=== PATIENT | male | born 1960 | race American Indian/Alaskan Native ===

== ENCOUNTER 2021-12-13 00:32 | Emergency (ER) | payer MEDICARE ==
--- NOTE | 2021-12-13 00:50 | Emergency Department Report ---
ED General Adult HPI - General Stated complaint: ABNORMAL LAB Time Seen by Provider: 12/13/21 00:46 - History of Present Illness Initial comments: Patient is a 61-year-old male sent from [facility] for abnormal labs. Patient reportedly has severe anemia and was sent here for blood transfusion. He he denies any symptoms. Denies dark stools or any bleeding. - Related Data Home Medications Medication Instructions Recorded Confirmed Last Taken Acetaminophen [Non-Aspirin] 650 mg PO PRN PRN 11/26/21 11/26/21 Unknown Diclofenac Sodium [Venngel One] 1 each TP Q6H PRN 11/26/21 11/26/21 Unknown Insulin Lispro [Admelog] 100 unit SQ PRN PRN 11/26/21 11/26/21 Unknown Rivaroxaban [Xarelto] 20 mg PO QDAY 11/26/21 12/03/21 Unknown Previous Rx's Medication Instructions Recorded Last Taken Type Acetaminophen [Acetaminophen TAB] 650 mg PO Q4H PRN tablet 12/04/21 Unknown Rx AtorvaSTATin 10 mg PO QHS tablet 12/04/21 Unknown Rx Calc Carb/Vit D 500 mg-200 Uni 1 each PO DAILY tablet 12/04/21 Unknown Rx [Oysco D 500 mg-200 Unit] Citalopram [celeXA] 10 mg PO QDAY tablet 12/04/21 Unknown Rx Cyclobenzaprine [Flexeril 10 MG 10 mg PO Q8H tablet 12/04/21 Unknown Rx TAB] Diclofenac 1% [Diclofenac 1% 1 applic TP Q6H PRN tube 12/04/21 Unknown Rx topical gel] Lipase/Protease/Amylase [Pancreaze 1 each FEEDTUBE PRN PRN capsule 12/04/[address],500 Unit] Mirtazapine [Remeron 15mg TAB] 15 mg PO QHS tablet 12/04/21 Unknown Rx Sennosides Tab [Senokot] 8.6 mg PO QDAY tablet 12/04/21 Unknown Rx Simple Syrup 15 ml FEEDTUBE PRN PRN oral.liqd 12/04/21 Unknown Rx Simple Syrup 30 ml FEEDTUBE PRN PRN oral.liqd 12/04/21 Unknown Rx Sodium Bicarbonate 325 mg FEEDTUBE PRN PRN tablet 12/04/21 Unknown Rx Thiamine [Vitamin B-1] 100 mg PO QDAY tablet 12/04/21 Unknown Rx lisinopriL [Zestril TAB] 5 mg PO DAILY tablet 12/04/21 Unknown Rx metFORMIN [Glucophage] 1,000 mg PO BIDDIAB tablet 12/04/21 Unknown Rx polyethylene glycoL 3350 [Miralax 17 gm PO DAILY PRN powd.pack 12/04/21 Unknown Rx 3350] Allergies Allergy/AdvReac Type Severity Reaction Status Date / Time No Known Allergies Allergy Verified 11/26/21 14:58 ED Review of Systems ROS: Stated complaint: ABNORMAL LAB Other details as noted in HPI ED Past Medical Hx - Past Medical History Hx Hypertension: Yes Hx Heart Attack/AMI: No Hx Congestive Heart Failure: No Hx Diabetes: Yes Hx Deep Vein Thrombosis: Yes Hx Liver Disease: No Hx Renal Disease: No Hx Sickle Cell Disease: No Hx Arthritis: Yes Hx Asthma: No Hx COPD: No Hx HIV: No - Social History Smoking Status: Former Smoker - Medications Home Medications: Home Medications Medication Instructions Recorded Confirmed Last Taken Type Acetaminophen [Non-Aspirin] 650 mg PO PRN PRN 11/26/21 11/26/21 Unknown History Diclofenac Sodium [Venngel One] 1 each TP Q6H PRN 11/26/21 11/26/21 Unknown History Insulin Lispro [Admelog] 100 unit SQ PRN PRN 11/26/21 11/26/21 Unknown History Rivaroxaban [Xarelto] 20 mg PO QDAY 11/26/21 12/03/21 Unknown History Acetaminophen [Acetaminophen TAB] 650 mg PO Q4H PRN tablet 12/04/21 Unknown Rx AtorvaSTATin 10 mg PO QHS tablet 12/04/21 Unknown Rx Calc Carb/Vit D 500 mg-200 Uni 1 each PO DAILY tablet 12/04/21 Unknown Rx [Oysco D 500 mg-200 Unit] Citalopram [celeXA] 10 mg PO QDAY tablet 12/04/21 Unknown Rx Cyclobenzaprine [Flexeril 10 MG 10 mg PO Q8H tablet 12/04/21 Unknown Rx TAB] Diclofenac 1% [Diclofenac 1% 1 applic TP Q6H PRN tube 12/04/21 Unknown Rx topical gel] Lipase/Protease/Amylase [Pancreaze 1 each FEEDTUBE PRN PRN capsule 12/04/[address],500 Unit] Mirtazapine [Remeron 15mg TAB] 15 mg PO QHS tablet 12/04/21 Unknown Rx Sennosides Tab [Senokot] 8.6 mg PO QDAY tablet 12/04/21 Unknown Rx Simple Syrup 15 ml FEEDTUBE PRN PRN oral.liqd 12/04/21 Unknown Rx Simple Syrup 30 ml FEEDTUBE PRN PRN oral.liqd 12/04/21 Unknown Rx Sodium Bicarbonate 325 mg FEEDTUBE PRN PRN tablet 12/04/21 Unknown Rx Thiamine [Vitamin B-1] 100 mg PO QDAY tablet 12/04/21 Unknown Rx lisinopriL [Zestril TAB] 5 mg PO DAILY tablet 12/04/21 Unknown Rx metFORMIN [Glucophage] 1,000 mg PO BIDDIAB tablet 12/04/21 Unknown Rx polyethylene glycoL 3350 [Miralax 17 gm PO DAILY PRN powd.pack 12/04/21 Unknown Rx 3350] ED Physical Exam - General General appearance: alert, in no apparent distress - Head Head exam: Present: atraumatic, normocephalic - Neck Neck exam: Present: other (Cervical collar in place due to recent spinal surgery) - Respiratory Respiratory exam: Present: normal lung sounds bilaterally. Absent: respiratory distress - Cardiovascular Cardiovascular Exam: Present: regular rate, normal rhythm, normal heart sounds - GI/Abdominal GI/Abdominal exam: Present: soft. Absent: distended, tenderness - Rectal Rectal exam: Present: deferred - Neurological Exam Neurological exam: Present: alert, oriented X3 - Psychiatric Psychiatric exam: Present: normal affect, normal mood - Skin Skin exam: Present: warm, dry, intact, normal color ED Course Vital Signs 12/13/21 12/13/21 12/13/21 00:33 00:59 02:24 Temperature 97.8 F 98.1 F Pulse Rate 88 85 Respiratory 18 16 Rate Blood Pressure 114/72 Blood Pressure 119/74 [Right] O2 Sat by Pulse 96 98 98 Oximetry ED Medical Decision Making - Lab Data Result diagrams: 12/13/21 01:24 12/13/21 01:24 - Medical Decision Making Hemoglobin 7.7. Occult stool negative. Vital signs are stable. Patient is in no acute distress. No indication for emergent blood transfusion at this time. He is stable for discharge back to nursing facility. Critical care attestation.: If time is entered above; I have spent that time in minutes in the direct care of this critically ill patient, excluding procedure time. ED Disposition Clinical Impression: Anemia Disposition: 01 HOME / SELF CARE / HOMELESS Is pt being admited?: No Condition: Stable Instructions: Hematocrit Test, Complete Blood Count Additional Instructions: Please follow-up with your regular doctor within 1 week. You may return if you develop shortness of breath, weakness or dizziness. Time of Disposition: 03:26
[2021-12-13 02:04] LABS: Hemoglobin 7.7 gm/dl (11.8-15.2); Mean Corpuscular HGB Conc 32 % (32-34); Mean Corpuscular Volume 74 fl (84-94); Platelet Count 858 K/mm3 (140-440); Red Blood Count 3.25 M/mm3 (3.65-5.03); Red Cell Distribution Width 19.4 % (13.2-15.2)
[2021-12-13 02:13] LABS: INR 0.95 (0.87-1.13)
[2021-12-13 02:15] LABS: Alanine Aminotransferase 8 units/L (7-56); Blood Urea Nitrogen 9 mg/dL (9-20); Calcium 9.4 mg/dL (8.4-10.2); Hemolysis Index 0
[2021-12-13 02:19] LABS: BUN/Creatinine Ratio 45; Bilirubin,Direct < 0.2 mg/dL (0-0.2)
[2021-12-13 03:45] LABS: Anisocytosis 1+; Basophils % (Manual) 0 % (0.0-1.8); Total Cells Counted 100
[2021-12-13 03:46] LABS: Hypochromasia 1+; Platelet Estimate Consistent w Auto
[2021-12-13 09:59] VITALS: BP 111/70
== END 2021-12-13 10:47 | disposition home or self-care (01) ==
LOC: ED 00:32
DX: D64.9 Anemia, unspecified (principal); I10 Essential (primary) hypertension; Z87.891 Personal history of nicotine dependence
CPT/HCPCS: 36415; 80048; 80076; 82270; 85007; 85025; 85610; 86850; 86900; 86901; 99283